=== PATIENT | male | born 1945 | race Caucasian/White ===

== ENCOUNTER 2020-01-24 14:15 | Emergency (ER) | payer MEDICARE ==
[~2020-01-24] VITALS: Wt 115.7 kg
== END 2020-01-24 17:10 | disposition home or self-care (01) ==
LOC: ED 14:15
DX: S30.0XXA Contusion of lower back and pelvis, initial encounter (principal); E11.9 Type 2 diabetes mellitus without complications; I10 Essential (primary) hypertension; X58.XXXA Exposure to other specified factors, initial encounter; Y93.89 Activity, other specified; Y92.89 Other specified places as the place of occurrence of the external cause; Y99.8 Other external cause status

== ENCOUNTER 2021-10-01 20:02 | Emergency (ER) | payer MEDICARE ==
[~2021-10-01] VITALS: Ht 172.7 cm; Wt 63.5 kg
[2021-10-01] MEDS ORDERED: SIMVASTATIN40 MG PO (20:12)
[2021-10-01] MEDS ORDERED: METFORMIN HYD1000 MG PO (20:12)
[2021-10-01] MEDS ORDERED: TAMSULOSIN HCL0.4 MG PO (20:12)
[2021-10-01] MEDS ORDERED: ELIQUIS5 M1 PO (20:12)
[2021-10-01] MEDS ORDERED: LOSARTAN POTASS50 M1 PO (20:13)
[2021-10-01] MEDS ORDERED: KAPSPARGO SPRIN50 MG PO (20:13)
[2021-10-01] MEDS ORDERED: Amaryl2 MG PO (20:13)
[2021-10-01] MEDS ORDERED: Accuneb 0.1.25 MG/3 INH (20:13)
[2021-10-01] MEDS ORDERED: COQ-10100 MG PO (20:15)
[2021-10-01] MEDS ORDERED: SAW PALMETTO450 M1 PO (20:15)
[2021-10-01] MEDS ORDERED: VITAMIN D350 MC2 PO (20:16)
[2021-10-01 21:02] LABS: BASO # 0.1 10*3/uL (0.0-0.1); BASO % 0.4 % (0.0-1.0); EOS # 0.2 10*3/uL (0.0-0.4); EOS % 1.4 % (1.0-4.0); HEMATOCRIT 37.6 % (42.0-52.0); LYMPH # 0.9 10*3/uL (1.3-4.4); MEAN CELL VOLUME 90.2 fl (80.0-94.0); MEAN CORPUSCULAR HGB CONC 33.2 g/dl (33.0-37.0); MEAN PLATELET VOLUME 8.4 fl (9.6-12.3); MONO # 1.1 10*3/uL (0.1-1.0); MONO % 8.1 % (3.0-9.0); NEUT # 10.8 10*3/uL (2.3-7.9); NEUT % 82.6 % (47.0-73.0); PLATELET COUNT AUTOMATED 293 10*3/uL (130-400); RED BLOOD COUNT 4.17 10*6/uL (4.50-5.90); WHITE BLOOD COUNT 13.1 10*3/uL (4.8-10.8)
[2021-10-01 21:16] LABS: ALBUMIN 2.7 gm/dl (3.1-4.5); ALKALINE PHOSPHATASE 60 U/L (45-117); BUN 17 mg/dl (7-24); CHLORIDE 109 mmol/L (98-107); CREATININE 0.76 mg/dL (0.70-1.30); POTASSIUM 3.8 mmol/L (3.5-5.1); SGOT/AST 14 IU/L (3-35); SGPT/ALT 26 U/L (12-78); SODIUM 141 mmol/L (136-145); TOTAL PROTEIN 7.3 gm/dL (6.4-8.2)
[2021-10-01] MEDS ORDERED: ZITHROMAX250 MG PO (22:29)
== END 2021-10-01 22:45 | disposition home or self-care (01) ==
LOC: ED 20:02
PROVIDERS: Physician Assistant
DX: J18.9 Pneumonia, unspecified organism (principal); Z79.899 Other long term (current) drug therapy